=== PATIENT | male | born 1960 | race Caucasian/White ===

== ENCOUNTER 2017-09-13 23:38 | Emergency (ER) | payer MEDICARE, OTHER, MEDICAID ==
[2017-09-14 01:59] LABS: ANION GAP 8 (6-14); BLOOD UREA NITROGEN 23 mg/dL (8-26); CALCIUM 9.2 mg/dL (8.5-10.1); CARBON DIOXIDE 26 mmol/L (21-32); CHLORIDE 103 mmol/L (98-107); CREATININE 0.9 mg/dL (0.7-1.3); GFR 87.9; GLUCOSE 92 mg/dL (70-99); POTASSIUM 4.4 mmol/L (3.5-5.1); SODIUM 137 mmol/L (136-145)
[2017-09-14 02:02] LABS: ADD MAN DIFF? NO
[2017-09-14 02:03] LABS: BASO % 1 % (0-3); EOS # 0.1 x10^3/uL (0.0-0.7); EOS % 1 % (0-3); HEMATOCRIT 39.5 % (39.0-53.0); HEMOGLOBIN 13.4 g/dL (13.0-17.5); LYMPH # 2.3 x10^3/uL (1.0-4.8); LYMPH % 47 % (24-48); MEAN CORPUSCULAR HEMOGLOBIN 32 pg (25-35); MEAN CORPUSCULAR HGB CONC 34 g/dL (31-37); MEAN CORPUSCULAR VOLUME 94 fL (79-100); MONO # 0.8 x10^3/uL (0.0-1.1); MONO % 16 % (0-9); NEUT # 1.8 x10^3uL (1.8-7.7); NEUT % 35 % (31-73); PLATELET COUNT 101 x10^3/uL (140-400)
[2017-09-14 02:05] LABS: ALBUMIN 3.4 g/dL (3.4-5.0); ALK PHOS 50 U/L (46-116); ALT (SGPT) 231 U/L (16-63); AST (SGOT) 156 U/L (15-37); DIRECT BILIRUBIN 0.2 mg/dL (0.0-0.2); LIPASE 287 U/L (73-393); TOTAL BILIRUBIN 0.4 mg/dL (0.2-1.0); TOTAL PROTEIN 7.5 g/dL (6.4-8.2)
[2017-09-14 02:12] LABS: TROPONINI < 0.017 ng/mL (0.000-0.055)
[2017-09-14] MEDS ORDERED: HYDROcodone/APAP 5/325MG 1 TAB TABLET PO (03:30)
== END 2017-09-14 03:43 | disposition home or self-care (01) ==
LOC: ER 23:38
DX: S09.90XA Unspecified injury of head, initial encounter (principal); G40.909 Epilepsy, unspecified, not intractable, without status epilepticus; F17.200 Nicotine dependence, unspecified, uncomplicated; Z87.820 Personal history of traumatic brain injury; Z88.0 Allergy status to penicillin; W01.198A Fall on same level from slipping, tripping and stumbling with subsequent striking against other object, initial encounter; Y93.89 Activity, other specified; Y92.89 Other specified places as the place of occurrence of the external cause; Y99.8 Other external cause status
CPT/HCPCS: 36415; 70450; 71045; 72125; 80048; 80076; 83690; 84484; 85025; 93005; 99285-25